=== PATIENT | male | born 1960 | race Caucasian/White ===

== ENCOUNTER 2025-02-21 14:40 | Outpatient (AMB) | payer OTHER, SELFPAY ==
--- NOTE | 2025-02-21 14:46 | A.OFFVIS_ITS ---
Vital Signs 3 02/21/25 14:51 Height 6 ft Weight 167 lb 6 oz BMI 22.7 BP 108/69 Blood Pressure Location Rt brachial Position Sitting Pulse 85 Pulse Source Pulse Oximeter Pulse Oximetry (%) 98 Oxygen Delivery Method Room Air Intake Visit Reasons: Back pain Intake Note: Pain today 5/10 Lead Case Manager Required: No Accompanied by: Spouse Allergies No Known Allergies Allergy (Verified 02/21/25 14:50) Medication List - Last Reconciled 02/21/25 by SAMMI Crum aspirin 81 mg PO DAILY atorvastatin 10 mg PO DAILY dulaglutide (Trulicity) 1.5 mg subcut QWEEK empagliflozin 25 mg PO DAILY gabapentin 300 mg PO TID glipizide 10 mg PO DAILY losartan 100 mg PO DAILY metformin 500 mg PO DAILY morphine ER 15 mg PO Q12H pregabalin 50 mg PO BID sertraline 25 mg PO DAILY HPI Comments Details: The patient is a 64-year-old male presenting with chronic back pain seeking evaluation for a spinal cord stimulator. Chronic back pain onset 6-10 years ago, subsequent to a minor activity, leading to paralysis and hospitalization, followed by surgical lumbar discectomies in 2011 and 2019 clearing pressure on nerves at [facility] [place]. Degenerative disc disease, scoliosis, and bone spurs noted in back imaging following discectomies; scoliosis sustained since a young age yet was undiagnosed per patient. 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 Consistently experiencing 10/10 pain on morphine ER 15 mg BID prn, right leg numbness, intermittent muscle spasms with radiating numbness to the right lower extremity. Bending and motions like squats, prolonged walking standing trigger back and leg exacerbation. Treatments inclusive of morphine and gabapentin supply partial relief, chronically diabetic yet non-respondent at A1c of 9 per patient. Scheduled for nephrology consultation for persistent active chronic kidney stones, no elimination modality detailed in present intervention. He has completed physical therapy and underwent back injections at [facility] in the past with minimal and temporary relief. - Onset & Timing: Back pain present for 6-10 years; exacerbated after minor physical activities. - Quality & Character: Stabbing and constant nature, rated persistently at 10/10. - Location & Radiation: Initiates in back; radiates to the right leg, shooting down to the giles and ankle, with association to numbness. - Exacerbating Factors: Prolonged standing, repetitive bending, manual labor. - Relieving Factors: Temporary improvement noted with morning rest; morphine and gabapentin provide partial relief. - Interference: Difficulty engaging in prolonged physical activities, stable postures especially standing worsen conditions. - Affect: Persistent pain impacts daily function with significant exhaustion by midday. - Analgesia: On a regime of morphine for several months; previously trialed oxycodone, tramadol, and currently continues gabapentin. - Adverse Effects: No elaborated adverse medication effects; partially effective pain mitigation. - Activities of Daily Living: Restrictive physical capacity, reliance on a couple of hours of work; mechanical labor aggravates status. - Aberrant Drug-Related Behaviors: None reported or observed; medication adherence is verbally noted. Oswestry Low Back Pain Disability Score=24 (moderate disability) [facility] Medical History (Updated 02/21/25 @ 15:40 by SAMMI Crum) Diabetes mellitus with hyperglycemia Diverticulosis Hypertension Nephrolithiasis Hyperlipidemia GERD (gastroesophageal reflux disease) Diabetic neuropathy DDD (degenerative disc disease), lumbar Back pain Surgical History (Updated 02/21/25 @ 15:43 by SAMMI Crum) History of lumbar discectomy (~2018) H/O discectomy (~11/2011) Social History (Updated 02/21/25 @ 14:49 by Marilyn James) Alcohol intake: current Alcohol intake frequency: holidays/special occasions only Patient Tobacco Use Status: Never used Tobacco Review of Systems Const Details: - Musculoskeletal: Reports persistent back pain, numbness in right leg, stiffness, and muscle spasms. - Neurologic: Reports numbness and leg sensation alteration. - Endocrine: Reports as diabetic with uncontrolled A1c - Genitourinary: Reports kidney stones; scheduled nephrological appointment. - General: Denies significant weight loss or gain; maintains work activity but with limitation. All systems reviewed & are unremarkable except as noted in HPI and below Physical Exam Vital Signs: Last Vital Signs Pulse 85 02/21/25 14:51 BP 108/69 02/21/25 14:51 Pulse Ox 98 02/21/25 14:51 Oxygen Delivery Method Room Air 02/21/25 14:51 BMI result Body Mass Index 22.7 General: Appears afebrile. Alert and oriented. Mood and affect appropriate. Follows and participates in conversation appropriately. Respiratory effort is unlabored. No cough. Able to transition from sit to stand unassisted. Ambulates with bilaterally normal heel strike and toe off. General: Yes no CVA tenderness Back/Spine/Pelvis Other: Patient is able to walk and stand on heels and tip toes with no difficulties demonstrating good motor tone. Slightly antalgic gait, no limping. Lumbar flexion forward and bending reproduce moderate pain, extension and axial rotations reproduces mild to moderate pain. Demonstrates 5/5 left and 4/5 right strength of quadriceps bilaterally as well as flexion/dorsiflexion of bilateral feet against resistance. 2+ pedal pulses bilaterally. Straight leg rise with dorsiflexion negative bilaterally. +2 right +1 left patellar and diminished achilles reflexes bilaterally. Facet loading test positive bilaterally. Anthony sign positive on the right, Levar?s, Pelvic compression and Stinchfield tests are negative bilaterally. No groin pain with I/E hip rotations. Valsalva maneuver is positive. Back: no CVA tenderness Cervical Spine: cervical ROM normal, cervical muscular tenderness and No Cervical spine tenderness Thoracic/Lumbar Spine: thoracic and lumbar spine normal to inspection, Thoracic/lumbar spine scar(s), Lasegue's sign negative, straight leg raise negative bilaterally, pain with thoraco-lumbar ROM, paraspinal muscle tenderness, thoraco-lumbar ROM limited, No thoracic spinal tenderness and lumbar spinal tenderness (L4-S1) Pelvis: buttock tenderness on the right and no sciatic notch tenderness Sacroiliac joints: on the right tender to palpation and on the left nontender Extrem General: Yes capillary refill normal, Yes no clubbing, cyanosis or edema and Yes no calf tenderness Results Reviewed Results Reviewed: Assessment & Plan Assessment & Plan (1) Chronic low back pain: Code(s): M54.50 - Low back pain, unspecified; G89.29 - Other chronic pain Category: Medical (2) DDD (degenerative disc disease), lumbar: Code(s): M51.369 - Other intervertebral disc degeneration, lumbar region without mention of lumbar back pain or lower extremity pain Category: Medical (3) Lumbar post-laminectomy syndrome: Code(s): M96.1 - Postlaminectomy syndrome, not elsewhere classified Category: Medical (4) Lumbosacral spondylosis: Code(s): M47.817 - Spondylosis without myelopathy or radiculopathy, lumbosacral region Category: Medical (5) Lumbar radiculopathy, right: Code(s): M54.16 - Radiculopathy, lumbar region Category: Medical Plan The patient requires an MRI to determine eligibility for spinal cord stimulation, considering his significant spinal pathologies including scoliosis, degenerative changes, and persistent low back and leg pain despite prior surgical interventions. With an A1c recorded at 9 per patient, it is imperative to seek Endocrinological consult for optimization of diabetic management to ensure readiness for non- invasive and minimally invasive procedures due to elevated infection risk. Psychological evaluation is also necessary as per guidelines for permanent neuromodulation devices. Medical release sent [place] [facility] for prior spine imaging and procedures. All questions and concerns have been answered and patient agreed with the plan. Follow up for MRI results and sooner as needed. Patient was informed and verbally consented to the use of an ambient scribe for clinic note documentation during this visit. Orders: Orders 2 MR lumbar spine wo/w con Today M47.817 - Spondylosis without myelopathy or radiculopathy, lumbosacral region, M51.369 - Other intervertebral disc degeneration, lumbar region without mention of lumbar back pain or lower extremity pain, M54.16 - Radiculopathy, lumbar region, M96.1 - Postlaminectomy syndrome, not elsewhere classified, Z98.890 - Other specified postprocedural states Patient Instructions: Discussed interventional treatments for patient's chronic back pain with right leg pain and recurrence based on chronicity?a leading candidate for spinal cord stimulatory treatment. The discussion included potential implementation after evaluating diabetic control, with vital emphasis noted on A1c's intersectional need for stabilization, thereby decreasing surgical morbidity indices and infection risks. Management options encompassed spinal modulations, easing pain transmission through neuromodulation with stipulations for one-week trial leading decisions. I certified informed consent amid methodical interchange about procedural outcomes, timelines, alternates, and medical ramifications through preemptive psychological screening coherence for trial forego credence. Provided engagement efficiency, observed to contaminate when unduly disturbed, representation furnished discussed prototype benefits above pharmacologic reliance; risked perception strategies evaluated; expected trajectory designated visitation-follow through revision framework. Coding Level of Care Code New Pt Level 4 (58314) Diagnoses Chronic low back pain M54.50; G89.29 DDD (degenerative disc disease), lumbar M51.369 Lumbar post-laminectomy syndrome M96.1 Lumbosacral spondylosis M47.817 Lumbar radiculopathy, right M54.16
[2025-02-21 14:51] VITALS: BP 108/69; PULSE 85; O2SAT 98; BMI 22.7
== END 2025-02-21 15:36 | disposition home or self-care (01) ==
LOC: HO.PMC 14:41
PROVIDERS: PCP Family Medicine; Visit Provider Nurse Practitioner Family
DX: M54.50 Low back pain, unspecified (principal); G89.29 Other chronic pain; M51.369 Other intervertebral disc degeneration, lumbar region without mention of lumbar back pain or lower extremity pain; M96.1 Postlaminectomy syndrome, not elsewhere classified; M47.817 Spondylosis without myelopathy or radiculopathy, lumbosacral region; M54.16 Radiculopathy, lumbar region
CPT/HCPCS: 99204

== ENCOUNTER → 2025-02-21 14:40 | Outpatient (BNVA) | payer OTHER, SELFPAY | PROVIDERS: PCP Family Medicine; Visit Provider Nurse Practitioner Family | DX: M54.50 Low back pain, unspecified (principal); M51.369 Other intervertebral disc degeneration, lumbar region without mention of lumbar back pain or lower extremity pain; M96.1 Postlaminectomy syndrome, not elsewhere classified; M47.817 Spondylosis without myelopathy or radiculopathy, lumbosacral region; M54.16 Radiculopathy, lumbar region; G89.29 Other chronic pain | CPT/HCPCS: 99202 ==

== ENCOUNTER 2025-03-07 15:53 | Outpatient (REF) | payer OTHER, SELFPAY ==
--- NOTE | ~2025-03-07 | MR_ITS ---
CLINICAL HISTORY: Z98.890 - Other specified postprocedural states MR of the lumbar spine with and without contrast Comparison: None Findings: Moderate dextrocurvature with the apex L3/L4. There is edema and enhancement L1/L2, L2/L3 and L3/L4 which is favored to be Modic type 1 change. No cord expansion or abnormal signal intensity. The conus medullaris terminates at T12/L1, which is normal. The cauda equina is unremarkable. Bilateral renal parapelvic cysts. Colonic diverticulosis. L1/L2: 3 mm disc bulge. Mild facet joint and ligamentum flavum hypertrophy. Mild central canal stenosis. Mild bilateral lateral recess stenosis. No foraminal stenosis. L2/L3: 4 mm disc bulge. Moderate facet joint and ligamentum flavum hypertrophy. Mild central canal stenosis. Mild right and moderate left lateral recess stenosis. Moderate right and no left foraminal stenosis. L3/L4: 4 mm disc bulge. Moderate facet joint and ligamentum flavum hypertrophy. Mild central canal stenosis. Mild right and severe left lateral recess stenosis. No right and [id number] left foraminal stenosis. There is focal enhancement of the exiting nerve root on the right which has a lobular appearance on the axial images ( series 13, image 27 and series 14, image 5 ). L4/L5: Status post left hemilaminectomy. Status post discectomy. There is enhancement indicating granulation tissue which measures to 3 mm in thickness. Severe facet joint and ligamentum flavum hypertrophy. Mild central canal stenosis. Severe bilateral lateral recess stenosis, [id number]-left. Severe right and moderate left foraminal stenosis. L5/S1: 3 mm disc bulge. Mild facet joint and ligamentum flavum hypertrophy. No central canal stenosis. No lateral recess stenosis. No foraminal stenosis. Impression: Multilevel endplate edema and enhancement is favored to be Modic type 1 change. Multilevel degenerative change, detailed above, most prominent at L4/L5. Focal enhancement of the exiting nerve root on the right at L3/L4 of uncertain etiology. The differential diagnosis includes a nerve sheath tumor and other infectious/inflammatory etiologies. Consider follow up. This document has been electronically signed by: Janis Carbajal MD on 03/07/2025 18:04:04
[2025-03-07] MEDS: gadobutroL 10 ML VIAL IVPUSH (16:42)
== END 2025-03-07 15:54 | disposition home or self-care (01) ==
LOC: HO.MRI 15:53
PROVIDERS: PCP Family Medicine; Visit Provider Nurse Practitioner Family
DX: M51.369 Other intervertebral disc degeneration, lumbar region without mention of lumbar back pain or lower extremity pain (principal); M96.1 Postlaminectomy syndrome, not elsewhere classified; M47.817 Spondylosis without myelopathy or radiculopathy, lumbosacral region; M54.16 Radiculopathy, lumbar region; Z98.890 Other specified postprocedural states
CPT/HCPCS: 72158; A9585

== ENCOUNTER → 2025-03-07 16:00 | Outpatient (BNV) | payer OTHER, SELFPAY | PROVIDERS: PCP Family Medicine; Visit Provider Radiology Diagnostic Radiology | DX: M51.369 Other intervertebral disc degeneration, lumbar region without mention of lumbar back pain or lower extremity pain (principal) | CPT/HCPCS: 72158 ==

== ENCOUNTER 2025-03-15 08:57 | Outpatient (REF) | payer OTHER, SELFPAY ==
--- NOTE | ~2025-03-15 | XR_ITS ---
EXAMINATION: XR LUMBOSACRAL SPINE CLINICAL INFORMATION: M41.56 - Other secondary scoliosis, lumbar region COMPARISON: Correlation made with MR lumbar 03/07/2025. TECHNIQUE: 4 views of the lumbar spine, inclusive of flexion and extension views, were obtained. FINDINGS: There is a moderate right convex scoliosis of the inferior lumbar spine, estimated Dumont angle of 28 degrees, apex at L3-4, with an associated rotatory component. There is straightening of the normal lumbar lordosis. There is pseudoarticulation of the right transverse process of L5 with the right sacral wing (partial sacralization L5). There is a minimal 3 mm retrolisthesis of L3 on L4. There is no additional significant sagittal subluxation. There are no compression deformities, acute fractures, or suspicious bone lesions. Moderate diffuse disc degeneration is present, with moderate to severe changes at L2-3 and L4-5. Facets are normally aligned. There are moderate multilevel degenerative facet changes. Flexion and extension views demonstrate no definite pathologic motion allowing for technical limitations. There is no evidence of instability. XR/XR lumbar spine 4V min IMPRESSION: 1. No acute findings of the lumbar spine. 2. There is a moderate right convex scoliosis, apex at L3-4, with estimated Dumont angle of 28 degrees, and an associated rotatory component. 3. There is no significant subluxation or pathologic bony motion on flexion and extension views. 4. There are mild to moderate changes of degenerative spondylosis. Electronically signed by: Blane Tarango MD 03/16/2025 08:36 AM EDT
== END 2025-03-15 08:58 | disposition home or self-care (01) ==
LOC: HO.HOSX 08:57
PROVIDERS: PCP Family Medicine; Referring Provider Nurse Practitioner Family; Visit Provider Neurological Surgery
DX: M41.56 Other secondary scoliosis, lumbar region (principal)
CPT/HCPCS: 72110; 99202

== ENCOUNTER 2025-03-15 08:57 | Outpatient (AMB) | payer OTHER, SELFPAY ==
--- NOTE | 2025-03-15 09:11 | A.SPINEOV_ITS ---
Intake Visit Reasons: back pain Intake Note: Mr. Arnold is here today c/o low back pain. MRI done @ [facility] [place]. 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 HPI: This 64-year-old male has a 10 year history of pain radiating from his back down into his leg, giles and into his foot. The pain is worse with standing and walking. Sitting down alleviates his symptoms. 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 He can not go to the [place] as this is too much walking. He had 2 lumbar microdiskectomies done done in the past by Dr. Whipple, we will remove the piece of disc from which he recovered well. He denies numbness or weakness. He does have diffuse muscle loss. The following conservative treatment options were tried without success antiinflammatories, tylenol, physical therapy, chiropractic therapy and injections. PMH: Diabetes, hypertension, nephrolithiasis Medications: Aspirin, atorvastatin, Trulicity, empagliflozin, gabapentin, glipizide, losartan, metformin, morphine 10 mg q.12 hours, pregabalin, sertraline Allergies: NKDA Social history: Nonsmoker Physical Exam: Pleasant male. Height 6 ft weight 160 lb. He is able to stand for very short period in the office before the pain radiates into his giles and into his foot. No neurological deficits for motor sensation or reflexes. Radiological Studies: MRI done at [facility] on 03/07/2025 shows a lumbar degenerative scoliosis causing severe right L4 foraminal stenosis. An x- ray of the lumbar spine with flexion-extension x-ray shows again the lumbar degenerative scoliosis with the apex at L4-5 and L3-4. Impression/Plan: This 64-year-old male is suffering from unilateral neurogenic claudication due to lumbar degenerative scoliosis causing severe right L4 foraminal stenosis. Unfortunately, a simple decompression in the form of an foraminotomy would not be sufficient. He needs to have a minimally invasive correction of the degenerative scoliosis to indirectly decompress the nerve roots. I think he has an excellent prognosis for the right leg pain. He was wondering about a spinal cord stimulator. I told him that this is only reserved for people with failed back syndrome, which is not the case as he has a good anatomical cause for his clinical symptoms. He is going to think about will discuss and will let me know if he wants to proceed. The procedure would be an oblique lumbar interbody fusion L3-4 and L4-5. Thank you for allowing me to participate in your patients care. total time spent was 60 minutes in counseling ,coordination of plan, personal review of imaging, surgical decision making and subsequent plan Raymond Gonsalves MD, PhD Spine Fellowship Trained Neurosurgeon Director, [facility] Orders: Orders XR lumbar spine 4V min Today M41.56 - Other secondary scoliosis, lumbar region Coding Level of Care Code New Pt Level 5 (78818) Diagnoses Scoliosis of lumbar region due to degenerative disease of spine in adult M41.56
== END 2025-03-15 10:41 | disposition home or self-care (01) ==
LOC: HO.HNS 08:58
PROVIDERS: PCP Family Medicine; Referring Provider Nurse Practitioner Family; Visit Provider Neurological Surgery
DX: M41.56 Other secondary scoliosis, lumbar region (principal)
CPT/HCPCS: 99205

== ENCOUNTER → 2025-03-15 09:47 | Outpatient (BNV) | payer OTHER, SELFPAY | PROVIDERS: PCP Family Medicine; Referring Provider Nurse Practitioner Family; Visit Provider Radiology Diagnostic Radiology | DX: M47.816 Spondylosis without myelopathy or radiculopathy, lumbar region (principal); M41.9 Scoliosis, unspecified | CPT/HCPCS: 72110 ==